=== PATIENT | female | born 1965 ===

== ENCOUNTER 2024-08-10 12:56 | Outpatient (CLI) | payer BC, SELFPAY ==
--- NOTE | ~2024-08-10 | CT_ITS ---
CT scan of the Neck Technique: 2.5 mm axial scans were obtained through the neck after intravenous administration of 75 c c Omnipaque 350. Coronal and sagittal reconstructions of the neck were obtained. Dose reduction techn ique was used on this scan by utilizing automated exposure control and iterative reconstruction techn ique. The dose-length product (DLP) was 417.97 mGy-cm. Clinical History: Dysphagia Findings: There is no evidence of any significant cervical lymphadenopathy. Several small, nonenlarged jugulo- digastric and posterior cervical lymph nodes are noted bilaterally. Parapharyngeal spaces appear norm al bilaterally. The parotid and submandibular glands appear normal. The pharyngeal mucosal spaces appear normal. No soft tissue masses are seen in the neck. The thyroid gland appears normal. Lung apices are clear. There is a 2.5 x 2.0 cm homogeneous enlarged lymph node or other anterior mediastinal mass (axial image 105).. Impression: 2.5 x 2.0 cm anterior mediastinal mass versus lymph node. Consider dedicated chest imaging for furthe r evaluation. Likely diagnostic considerations could include thymic lesion/neoplasm or lymphoma. Lesi on is separate from the thyroid gland. Reviewed, dictated and finalized at [facility]. Impression: 2.5 x 2.0 cm anterior mediastinal mass versus lymph node. Consider dedicated ch est imaging for further evaluation. Likely diagnostic considerations could incl ude thymic lesion/neoplasm or lymphoma. Lesion is separate from the thyroid gla nd.
[2024-08-10 13:15] LABS: Estimated Glomerular Filt Rate > 60
== END 2024-08-10 12:57 | disposition home or self-care (01) ==
LOC: MICIMG 12:58
PROVIDERS: PCP Otolaryngology Otolaryngology/Facial Plastic Surgery; Visit Provider Otolaryngology Otolaryngology/Facial Plastic Surgery
DX: R22.1 Localized swelling, mass and lump, neck (principal); R13.10 Dysphagia, unspecified
CPT/HCPCS: 70491; Q9967